=== PATIENT | female | born 1970 | race Caucasian/White ===

== ENCOUNTER 2023-03-16 13:46 | Emergency (ER) | payer MEDICAID, SELFPAY ==
[2023-03-16 13:59] VITALS: BP 132/80; PULSE 85; RESP 20; O2SAT 98
--- NOTE | 2023-03-16 22:17 | W.ED.GENAD ---
Discharge Plan Disposition Patient Disposition: Home Discharge Details Clinical Impression: Finger laceration Primary Care Provider: Yoana,Local ED Provider: Deirdre Patel Home Meds and New Rx's Prescriptions: Continued epinephrine [EpiPen 2-Chi] 0.3 MG/0.3 ML auto-injector 0.3 mg IM ONCE epinephrine 0.3 Mg/ 0.3 mg IM PRN Qty: 1 2RF Rx Instructions: 1 PEN IM once for accidental exposure of allergen eszopiclone 2 MG tablet 2 mg PO HS Qty: 90 Rx Instructions: Take 1 tab PO HS for middle insomnia loratadine 10 MG tablet 10 mg PO BID Patient Comments: 08-10-17 pt reports that she is not currently taking this med. hb clindamycin HCl 300 MG capsule 300 mg PO QID Qty: 40 0RF Rx Instructions: Please take a total of 450 mg 4 times daily for 10 days clindamycin HCl 150 MG capsule 150 mg PO QID Qty: 40 0RF Rx Instructions: Please take a total of 450 mg 4 times daily for 10 days Discharge Instructions Instructions: Finger Laceration (ED) Additional Instructions: keep clean and dry keep covered until healed, when working return earlier with spreading redness, fever worsening pain Discharge Data Discharge Date/Time-TO BE ENTERED AT DEPARTURE: 03/16/23 18:08 Medical Decision Making 50-year-old female presenting with laceration to left third digit Tetanus was updated in the emergency department, no indication for x-ray Wound was cleansed and glue was applied, coagulation achieved Return precautions reviewed and patient expressed understanding, will take the rest of the week off We did talk about suture placement, patient prefers glue and I think this is appropriate at this time She is neurovascularly intact, she has brisk distal capillary refill HPI General Date/Time Provider Initiated Documentation: 03/16/23 16:40. HPI Narrative: This 52-year-old female presents with laceration to left hand on her middle finger from hedge clippers about 15 minutes prior to arrival. She is unsure if her tetanus is up-to-date. 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 Related Data Home Medications Medication Instructions Recorded Confirmed loratadine 10 mg tablet 10 mg PO BID 02/12/14 03/08/17 epinephrine 0.3 mg/0.3 mL 0.3 mg IM ONCE 06/14/14 03/08/17 injection, auto-injector (EpiPen 2-Chi) eszopiclone 2 mg tablet 2 mg PO HS #90 tabs 02/25/17 clindamycin HCl 150 mg capsule 150 mg PO QID #40 caps 03/08/17 clindamycin HCl 300 mg capsule 300 mg PO QID #40 caps 03/08/17 Previous Rx's Medication Instructions Recorded clindamycin HCl 150 mg capsule 150 mg PO QID #40 caps 03/08/17 clindamycin HCl 300 mg capsule 300 mg PO QID #40 caps 03/08/17 Allergies Allergy/AdvReac Type Severity Reaction Status Date / Time shellfish derived Allergy Intermediate Swelling/Ed Unverified 08/10/17 15:01 luciano venom-honey bee Allergy Intermediate Swelling/Ed Unverified 08/10/17 15:01 luciano maitake mushroom Allergy Unverified 08/10/17 15:01 Sulfa (Sulfonamide AdvReac Intermediate Nausea Unverified 08/10/17 15:01 Antibiotics) General Stated Complaint: Laceration GREY: 4 PFSH All Active Problems (Updated 03/16/23 @ 17:27 by BALTAZAR Hale) Finger laceration (Acute) Medical History (Updated 03/16/23 @ 17:27 by BALTAZAR Hale) Acute peptic ulcer Uterine fibroids affecting Surgical History (Updated 05/11/18 @ 14:33 by [employer] [place]) Cholecystectomy Hysterectomy, Laproscopic Ligation of fallopian tube Oophrectomy, Left Family History Mother Heart disease Father Neoplasm Social History Smoking/Tobacco Use Status: Never Smoking risk assessment performed?: Yes Alcohol Intake: never Drug use: Never Substance use type: does not use Housing: apartment Do you feel safe at home: Yes Do you feel safe in your relationship?: Yes Course Vital Signs Vital signs: Vital Signs Pulse 85 03/16/23 13:59 Respiratory Rate 20 03/16/23 13:59 Blood Pressure 132/80 03/16/23 13:59 Pulse Oximetry 98 03/16/23 13:59 Pulse 85 03/16/23 13:59 Respiratory Rate 20 03/16/23 13:59 Respiratory Effort Normal, Non-Labored 03/16/23 14:01 Blood Pressure 132/80 03/16/23 13:59 Blood Pressure Position Sitting 03/16/23 13:59 Pulse Oximetry 98 03/16/23 13:59 Oxygen Delivery Method Room Air 03/16/23 13:59 Oxygen Flow Rate 0 03/16/23 13:59
== END 2023-03-16 18:08 | disposition home or self-care (01) ==
PROVIDERS: Emergency Provider Physician Assistant
DX: S61.213A Laceration without foreign body of left middle finger without damage to nail, initial encounter (principal); W26.8XXA Contact with other sharp object(s), not elsewhere classified, initial encounter
CPT/HCPCS: 90471; 99284; 99283

== ENCOUNTER → 2023-04-19 00:44 | Outpatient (CLI) | payer MEDICAID, SELFPAY ==
--- NOTE | 2023-04-19 08:30 | DI.US_ITS ---
Exam(s) US PELVIS TRANSVAGINAL EXAM: US PELVIS TRANSVAGINAL CLINICAL HISTORY: s/p hysterectomy,RLQ ABD PAIN,R10.31. TECHNIQUE: Transabdominal and transvaginal pelvic ultrasound was performed using standard protocol. COMPARISON: US PELVIS TRANSVAG from 03/15/2017 FINDINGS: UTERUS: Status post hysterectomy. OVARIES: The ovaries were not visualized transabdominally or transvaginally. No adnexal masses are s een sonographically. CUL-DE-SAC: Free fluid: None. Other: None. IMPRESSION: 1. Status post hysterectomy. 2. The ovaries were not visualized sonographically. No adnexal masses are seen. DATA REPOSITORY:
== END ==
PROVIDERS: Visit Provider Obstetrics & Gynecology Gynecology
DX: Z98.890 Other specified postprocedural states (principal); Z90.710 Acquired absence of both cervix and uterus; R10.31 Right lower quadrant pain
CPT/HCPCS: 76830; 76856

== ENCOUNTER 2024-01-01 18:27 | Emergency (ER) | payer MEDICAID, SELFPAY ==
[2024-01-01 18:30] VITALS: BP 159/67; PULSE 80; RESP 15; TEMP 36.2; O2SAT 96
--- NOTE | 2024-01-01 18:30 | DI.RAD_ITS ---
Exam(s) XR WRIST LT COMPLETE EXAM: XR WRIST LT COMPLETE CLINICAL HISTORY: pain s/p fall. TECHNIQUE: 2D digital imaging was performed. COMPARISON: No exams were available for comparison FINDINGS: 3 views Evidence of fracture or dislocation nor significant ulnar variance. Scaphoid and scapholunate distan ce normal. Mild degenerative changes are noted in the 1st carpometacarpal joint. IMPRESSION: No acute osseous findings. DATA REPOSITORY: RADIATION DOSE DELIVERED:
--- NOTE | 2024-01-01 18:30 | DI.RAD_ITS ---
Exam(s) XR FOREARM LT EXAM: XR FOREARM LT CLINICAL HISTORY: pain s/p fall. TECHNIQUE: 2D digital imaging was performed. COMPARISON: No exams were available for comparison FINDINGS: Two views-AP and lateral No evidence of fracture of the radial head and neck. Remainder of the forearm bones unremarkable. N o radiopaque foreign body. Incidentally noted is cortical irregularity at the level the medial epicondyle the distal humerus. M ay be related to epicondylitis. Also small bony excrescence seen off the lateral epicondyle fossa in dicating chronic lateral epicondylitis for. IMPRESSION: No significant osseous findings in the radius and ulna. Bilateral distal humerus epicondyle findings as described above. Probably related to epicondylitis. Correlation with site of tenderness recommended DATA REPOSITORY: RADIATION DOSE DELIVERED:
--- NOTE | 2024-01-01 18:30 | DI.RAD_ITS ---
Exam(s) XR HAND LT COMPLETE EXAM: XR HAND LT COMPLETE CLINICAL HISTORY: pain /sp fall. TECHNIQUE: 2D digital imaging was performed. COMPARISON: No exams were available for comparison FINDINGS: 3 views No evidence of acute fracture or dislocation or significant abnormal soft tissue densities. No radio paque foreign body. No osseous lesions nor erosions. IMPRESSION: No acute osseous findings in the hand. DATA REPOSITORY: RADIATION DOSE DELIVERED:
--- NOTE | 2024-01-01 18:43 | W.ED.GENAD ---
Discharge Plan Disposition Patient Disposition: Home Condition: Stable Discharge Details Clinical Impression: Contusion of arm, left, Left wrist sprain Primary Care Provider: None,None ED Provider: Alejandro Anton Home Meds and New Rx's Prescriptions: Continued epinephrine [EpiPen 2-Chi] 0.3 MG/0.3 ML auto-injector 0.3 mg IM ONCE epinephrine 0.3 Mg/ 0.3 mg IM PRN Qty: 1 2RF Rx Instructions: 1 PEN IM once for accidental exposure of allergen Discharge Instructions Additional Instructions: Call orthopedics on Wednesday to arrange for follow-up appointment You can take 1000 mg of Tylenol and 600 mg of ibuprofen every 6 hours as needed If you feel more ill or have severe worsening pain return to the emergency department for reevaluation Referrals: Grzegorz Chopra MD [ [facility] STAFF PHYSICIAN] - [facility] General Mode of arrival: ambulatory. Date/Time Provider Initiated Documentation: 01/01/24 18:35. Limitations to Documentation: no limitations. Information obtained by: patient. History of Present Illness 53 year old F presents to the emergency department with the chief complaint of left arm pain, described as moderate, with intensity rated at 7. Quality is described as aching, and is localized to the left and upper extremity. Patient reports no radiation. and it has been constant. No relieving factors improve symptom(s), No exacerbating factors reported . Patient notes no other symptoms.. Patient did receive the following treatments prior to arrival, none Related Data Home Medications Medication Instructions Recorded Confirmed epinephrine 0.3 mg/0.3 mL 0.3 mg IM ONCE 06/14/14 07/12/23 injection, auto-injector (EpiPen 2-Chi) Allergies Allergy/AdvReac Type Severity Reaction Status Date / Time shellfish derived Allergy Intermediate Swelling/Ed Unverified 06/22/23 13:52 luciano venom-honey bee Allergy Intermediate Swelling/Ed Unverified 06/22/23 13:52 luciano maitake mushroom Allergy Unverified 06/22/23 13:52 Sulfa (Sulfonamide AdvReac Intermediate Nausea Unverified 06/22/23 13:52 Antibiotics) General Stated Complaint: Orthopedic GREY: 4 Review of Systems All systems reviewed & are unremarkable except as noted in HPI and below Constitutional Constitutional: Denies chills, Denies fever(s) and Denies weakness Cardiovascular Cardiovascular: Denies chest pain and Denies dyspnea Respiratory Respiratory: Denies cough and Denies dyspnea Gastrointestinal Gastrointestinal: Denies abdominal pain, Denies nausea and Denies vomiting Musculoskeletal Musculoskeletal: Denies joint swelling Neurologic Neurologic: Denies weakness Psychiatric Psychiatric: Denies depression Exam Const General: no acute distress Orientation: alert HENWV Head: normal to inspection Ears: external ears normal General nose exam: external nose normal Mouth: moist mucous membranes Eyes General: appearance normal, both eyes and all related structures Neck Neck: normal visual inspection Resp Effort & Inspection: normal respiratory effort and able to speak in complete sentences Cardio Rate: regular rate Skin General skin exam: no rashes or lesions noted Neuro General: patient alert and patient oriented x3 Extrem General: full ROM and capillary refill normal Psych Mental Status: mental status grossly normal Course Vital Signs Vital signs: Vital Signs Temperature 36.2 C L 01/01/24 18:30 Pulse 80 01/01/24 18:30 Respiratory Rate 15 01/01/24 18:30 Blood Pressure 159/67 H 01/01/24 18:30 Pulse Oximetry 96 01/01/24 18:30 Temperature 36.2 C L 01/01/24 18:30 Temperature Source Tympanic 01/01/24 18:30 Pulse 80 01/01/24 18:30 Respiratory Rate 15 01/01/24 18:30 Respiratory Effort Normal 01/01/24 18:33 Blood Pressure 159/67 H 01/01/24 18:30 Blood Pressure Position Sitting 01/01/24 18:30 Pulse Oximetry 96 01/01/24 18:30 Oxygen Delivery Method Room Air 01/01/24 18:30 Oxygen Flow Rate 0 01/01/24 18:30 Pain Level 7 01/01/24 18:30 Medical Decision Making 53-year-old female comes in with left arm pain. 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 Did not hit her head or lost consciousness. She has pain in her left mid forearm, left medial wrist and left medial hand. No visible or palpable deformities on exam. Has intact sensation and pulses. Has full range of motion of her wrist and fingers but has tenderness over the fifth mid metacarpal and also the medial surface of the wrist. Has tenderness in the mid forearm, no tenderness over the elbow, humerus or shoulder. Suspect contusions but will obtain x-rays to evaluate for fracture X-rays negative other than question of a nondisplaced medial epicondyle fracture. Patient has full range of motion of her elbow, has minimal tenderness in this area. Unclear if this is actually a true fracture but will place in a sling and also given a wrist splint for her wrist sprain. Will have her follow-up with orthopedics Differential Diagnosis Differential Diagnosis: Contusion, fracture Imaging Data Radiologic Study: Attestation: I personally reviewed and interpreted this imaging study as follows: Imaging: X-Ray Radiologist's impression: PROCEDURE INFORMATION: Exam: XR Left Forearm Exam date and time: 01/01/2024 7:04 PM Age: 53 years old Clinical indication: Injury or trauma; Blunt trauma (contusions or hematomas); Arm, lower and wrist and hand; Left; Injury date: 01/01/24; Patient HX: Pain /sp fall TECHNIQUE: Imaging protocol: Radiologic exam of the left forearm. Views: 2 views. COMPARISON: CR XR WRIST LT COMPLETE 01/01/2024 7:00 PM FINDINGS: Bones/joints: There is a nondisplaced avulsion fracture of the medial epicondyle suspected. Mild enthesopathic spurring at the lateral epicondyle. Soft tissues: Normal. IMPRESSION: Nondisplaced avulsion fracture of the medial epicondyle suspected. Radiologic Study #2: Attestation: I personally reviewed and interpreted this imaging study as follows: Imaging: X-Ray Radiologist's impression: no acute findings on wrist xray Radiologic Study #3: Attestation: I personally reviewed and interpreted this imaging study as follows: Imaging: X-Ray Radiologist's impression: no acute findings hand xray Quality:SDOH Health Related Social Needs: No Data to Display PFSH All Active Problems (Updated 01/01/24 @ 20:05 by Alejandro Anton MD) Left wrist sprain (Acute) Contusion of arm, left (Acute) Grief reaction with prolonged bereavement (Acute) 2017. spouse killed grooming [employer]. Vasomotor symptoms due to menopause (Acute) Insomnia associated with menopause (Acute) Medical History (Updated 01/01/24 @ 20:05 by Alejandro Anton MD) RLQ abdominal pain Acute peptic ulcer Uterine fibroids affecting Surgical History (Updated 05/11/18 @ 14:33 by [employer] [place]) Ligation of fallopian tube Oophrectomy, Left Hysterectomy, Laproscopic Cholecystectomy Family History Mother Heart disease Father Neoplasm Social History (Updated 04/24/23 @ 07:10 by Renay Barth MD) Smoking/Tobacco Use Status: Never Smoking risk assessment performed?: Yes Alcohol Intake: never Drug use: Never Substance use type: does not use Household members: other Details: lives alone. Housing: apartment Number of Children: 2 current occupation: [employer] Sexually active: No Do you feel safe at home: Yes Do you feel safe in your relationship?: Yes Additional Social history: Daughters: Rin Mann History History 4 Para 2 Hx # Term Pregnancies 2 Multiple births Hx # Pregnancies Ectopic pregnancies 1 AB induced Hx Number of Living Children 2 AB spontaneous 1
[2024-01-01] MEDS: Ibuprofen 600 MG TAB PO (18:56)
--- NOTE | 2024-01-01 19:53 | DI.VRAD_ITS ---
PROCEDURE INFORMATION: Exam: XR Left Forearm Exam date and time: 01/01/2024 7:04 PM Age: 53 years old Clinical indication: Injury or trauma; Blunt trauma (contusions or hematomas); Arm, lower and wrist and hand; Left; Injury date: 01/01/24; Patient HX: Pain /sp fall TECHNIQUE: Imaging protocol: Radiologic exam of the left forearm. Views: 2 views. COMPARISON: CR XR WRIST LT COMPLETE 01/01/2024 7:00 PM FINDINGS: Bones/joints: There is a nondisplaced avulsion fracture of the medial epicondyle suspected. Mild enthesopathic spurring at the lateral epicondyle. Soft tissues: Normal. IMPRESSION: Nondisplaced avulsion fracture of the medial epicondyle suspected. Dictated and Authenticated by: Tashi Salas MD. Ordering:JORGE Allen MD
--- NOTE | 2024-01-01 19:56 | DI.VRAD_ITS ---
PROCEDURE INFORMATION: Exam: XR Left Wrist Exam date and time: 01/01/2024 7:00 PM Age: 53 years old Clinical indication: Injury or trauma; Blunt trauma (contusions or hematomas); Arm, lower and wrist and hand; Left; Injury date: 01/01/2024; Patient HX: Pain S/P fall TECHNIQUE: Imaging protocol: Radiologic exam of the left wrist. Views: 3 or more views. COMPARISON: CR XR HAND LT COMPLETE 01/01/2024 6:58 PM FINDINGS: Bones/joints: Normal. Soft tissues: Normal. IMPRESSION: No acute findings. Dictated and Authenticated by: Tashi Salas MD. Ordering:JORGE Allen MD
--- NOTE | 2024-01-01 19:57 | DI.VRAD_ITS ---
PROCEDURE INFORMATION: Exam: XR Left Hand Exam date and time: 01/01/2024 6:58 PM Age: 53 years old Clinical indication: Injury or trauma; Blunt trauma (contusions or hematomas); Arm, lower and wrist and hand; Left; Injury date: 01/01/2024; Patient HX: Pain S/P fall TECHNIQUE: Imaging protocol: Radiologic exam of the left hand. Views: 3 or more views. COMPARISON: No relevant prior studies available. FINDINGS: Bones/joints: Normal. Soft tissues: Normal. IMPRESSION: No acute findings. Dictated and Authenticated by: Tashi Salas MD. Ordering:JORGE Allen MD
[2024-01-01 20:26] VITALS: BP 159/67; PULSE 80; RESP 15; TEMP 36.2; O2SAT 96
--- NOTE | 2024-01-02 14:08 | NUR.NOTE ---
Accessed patient chart to print provider note to be faxed to [facility] for billing purposes. Nursing Note:
== END 2024-01-01 20:26 | disposition home or self-care (01) ==
PROVIDERS: Emergency Provider Emergency Medicine
DX: S50.12XA Contusion of left forearm, initial encounter (principal); S63.502A Unspecified sprain of left wrist, initial encounter; W01.0XXA Fall on same level from slipping, tripping and stumbling without subsequent striking against object, initial encounter; Y93.H2 Activity, gardening and landscaping; Y92.017 Garden or yard in single-family (private) house as the place of occurrence of the external cause; Y99.0 Civilian activity done for income or pay
CPT/HCPCS: 99283; 73090; 73110; 73130

== ENCOUNTER 2024-02-01 15:05 | Outpatient (CLI) | payer MEDICAID, SELFPAY ==
--- NOTE | 2024-02-01 09:30 | DI.RAD_ITS ---
Exam(s) XR WRIST LT COMP NAVICULAR EXAM: XR WRIST LT COMP NAVICULAR CLINICAL HISTORY: continued wrist pain 1 month after fall. TECHNIQUE: 2D digital imaging was performed. Three views. COMPARISON: CR,XR XR WRIST LT COMPLETE from 01/01/2024 FINDINGS: BONES: No acute fracture is present. No bony destructive lesion is seen. JOINTS: The carpal bones are normally aligned. Mild spurring at the 1st carpal metacarpal joint and scaphoid trapezium joint. SOFT TISSUE: Normal. IMPRESSION: Mild degenerative changes. DATA REPOSITORY: RADIATION DOSE DELIVERED:
--- NOTE | 2024-02-01 09:30 | DI.RAD_ITS ---
Exam(s) XR ELBOW LT LIMITED EXAM: XR ELBOW LT LIMITED CLINICAL HISTORY: fracture follow up. TECHNIQUE: 2D digital imaging was performed. Three views. COMPARISON: CR LEFT ELBOW COMPLETE from 08/09/2012 CR,XR XR FOREARM LT from 01/01/2024 FINDINGS: BONES: No acute fracture is present. No bony destructive lesion is seen. Mild spurring lateral epicon dyle. Smoothly marginated bony fragment adjacent to the medial epicondyle is likely related to calci fication in tendon or ligament. JOINTS: The elbow is normally aligned. No joint effusion is seen. SOFT TISSUE: Normal. IMPRESSION: No evidence of fracture. Stable findings at both epicondyles which could be related to epicondylitis . DATA REPOSITORY: RADIATION DOSE DELIVERED:
== END 2024-02-01 15:06 | disposition home or self-care (01) ==
LOC: DIORS 15:05
PROVIDERS: Visit Provider Physician Assistant
DX: S69.92XA Unspecified injury of left wrist, hand and finger(s), initial encounter (principal); S42.442A Displaced fracture (avulsion) of medial epicondyle of left humerus, initial encounter for closed fracture; M19.032 Primary osteoarthritis, left wrist
CPT/HCPCS: 73070; 73110

== ENCOUNTER 2025-05-07 01:48 | Emergency (ER) | payer MEDICAID, SELFPAY ==
[2025-05-07 01:51] VITALS: BP 121/84; PULSE 81; RESP 16; TEMP 36.4; O2SAT 97
[2025-05-07 02:03] VITALS: BP 121/84; PULSE 81; RESP 16; TEMP 36.4; O2SAT 97
--- NOTE | 2025-05-07 02:10 | W.ED.GENAD ---
Discharge Plan Disposition Patient Disposition: Home Condition: Good Discharge Details Clinical Impression: Radicular low back pain, Panniculitis Primary Care Provider: None,None ED Provider: Tre Day Home Meds and New Rx's Prescriptions: New prednisone 50 mg tablet 50 mg PO DAILY Qty: 5 0RF lidocaine [Lidoderm] 5 % adhesive patch,medicated 1 patch Topical Q24H Qty: 15 0RF methocarbamol 1,000 mg tablet 1,500 mg PO TID Qty: 30 0RF No Action epinephrine [EpiPen 2-Chi] 0.3 MG/0.3 ML auto-injector 0.3 mg IM ONCE epinephrine 0.3 Mg/ 0.3 mg IM PRN Qty: 1 2RF Rx Instructions: 1 PEN IM once for accidental exposure of allergen acetaminophen 325 mg capsule 650 mg PO Q6H PRN Discharge Instructions Instructions: Radiculopathy (DC) Additional Instructions: At this time your signs and symptoms are clinically consistent with a back sprain. This can cause significant pain and take a fair bit of time to heal. I expect 1 to 2 months for potential resolution. In the meantime do not lift anything greater than 5 pounds for the next 2 weeks. Avoid any significant vigorous physical activity. Perform easy gentle regular activities at home without any significant bending or lifting. Please take the steroids as directed. You have been given a prescription for Lidoderm patch. If your insurance does not cover this you can get [id number] Lidoderm patches at 4% which are almost just as effective. Please take the methocarbamol as directed but do not take it when driving or operating any vehicles or heavy machinery, swimming, taking long baths, or operating firearms. Please use a heating pad as often as possible on your back. Perform daily gentle stretches on your back. Please continue to take the Tylenol and Motrin. You can take 1000 mg of Tylenol every 6 hours and 600 mg of ibuprofen every 6 hours. If you notice any worsening of your symptoms, or any new symptoms such as vomiting, diarrhea, fever, chills, shortness of breath, chest pain, numbness or tingling in your groin or legs, weakness in your legs, loss of control for your bowels or bladder, or fainting , please return immediately to the emergency department for reevaluation. Please follow up with your primary care provider as soon as possible for reassessment and reevaluation. As always, it was a pleasure participating in your medical care today. HPI General Date/Time Provider Initiated Documentation: 05/07/25 01:50. HPI Narrative: This is a 54-year-old female with past medical history of mild obesity, but no other significant medical problems who presents today for evaluation of right flank pain. The patient states that about 4 to 5 days ago she was doing a lot of outside yard work and landscaping, she developed some mild right sided flank achiness and back pain at that time. Its persisted over the last 4 days, it is worsened with activity and movement, but it is also present at rest. She has been taking NSAID therapy which initially was improving her symptoms but now has no longer been helpful or beneficial. She denies fever, but does admit to occasional hot flashes. She admits to urinary frequency but denies any burning/dysuria or hematuria. She denies personal history of kidney stones. No other complaints at this time. No other modifying factors. No vomiting or diarrhea. No constipation. Patient denies any saddle anesthesia, numbness or tingling in the groin, change in sensation when wiping. Patient denies any change in sensation during sexual intercourse, bowel or bladder incontinence, leakage, or retention. Patient denies any weakness in the lower extremities, atypical falls or imbalance. She does admit to a slight burning sensation down her right leg occasionally. Related Data Home Medications ?Medication ?Instructions ?Recorded ?Confirmed epinephrine 0.3 mg/0.3 mL 0.3 mg IM ONCE 06/14/14 05/07/25 injection, auto-injector (EpiPen 2-Chi) acetaminophen 325 mg capsule 650 mg PO Q6H PRN 05/07/25 05/07/25 lidocaine 5 % topical patch 1 patch topical Q24H #15 ea 05/07/25 (Lidoderm) methocarbamol 1,000 mg tablet 1,500 mg (1.5 x 1,000 mg) PO TID 05/07/25 #30 tabs prednisone 50 mg tablet 50 mg PO DAILY #5 tabs 05/07/25 Previous Rx's ?Medication ?Instructions ?Recorded lidocaine 5 % topical patch 1 patch topical Q24H #15 ea 05/07/25 (Lidoderm) methocarbamol 1,000 mg tablet 1,500 mg (1.5 x 1,000 mg) PO TID 05/07/25 #30 tabs prednisone 50 mg tablet 50 mg PO DAILY #5 tabs 05/07/25 Allergies Allergy/AdvReac Type Severity Reaction Status Date / Time shellfish derived Allergy Intermediate Swelling/Ed Unverified 02/01/24 09:15 luciano venom-honey bee Allergy Intermediate Swelling/Ed Unverified 02/01/24 09:15 luciano maitake mushroom Allergy Other (See Unverified 02/01/24 09:15 Comment) Sulfa (Sulfonamide AdvReac Intermediate Nausea Unverified 02/01/24 09:15 Antibiotics) General Stated Complaint: Abd Prob GREY: 3 Exam Narrative Exam Narrative: 1.Const: Well-nourished, Well-developed, appearing stated age 2.Eyes: PERRL, no conjunctival injection, and symmetrical lids. 3.ENT: Atraumatic external nose and ears. Moist MM. Neck: Symmetric, trachea midline, No thyromegaly. 4.CVS: +S1/S2, Peripheral pulses 2+ and equal in all extremities. Brisk capillary refill in all extremities. 5.RESP: Unlabored respiratory effort. Clear to auscultation bilaterally. No wheezes rales or rhonchi 6.GI: Soft, nondistended. No guarding or rebound. Mild tenderness on deep palpation of the right and left lower abdominal quadrants. Mild right CVA tenderness. 7.MSK: Normocephalic/Atraumatic, Extremities w/o deformity or ttp No cyanosis or clubbing, Normal movement of all extremities No midline tenderness to palpation over the CTS spine. Mild tenderness around L4 midline. Mild to moderate right paraspinal tenderness at the lumbar vertebra. Normal ROM in flexion, extension, side bend, and rotation. Patient has +5 out of 5 strength in the lower extremities in dorsiflexion and plantarflexion, knee flexion and extension, hip flexion and extension. Normal strength for dorsiflexion and plantar flexion of the great toe bilaterally. There is +2 over 2 dorsalis pedis pulses bilaterally. There is normal sensation to the skin with light touch at the foot, knee, and hip. Normal saddle sensation. Good sensation over the deep sural nerve area bilaterally. +5 out of 5 strength in the medial, ulnar, radial nerve distribution bilaterally in the hands as well as intact light touch sensation to these dermatomes on the hands 8.Skin: Warm, Dry. No rashes or lesions. 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 Sensation grossly intact, no focal neurologic deficits. 10.Psych: (AAO) x3. Appropriate mood and affect Course Vital Signs Vital signs: Vital Signs Temperature 36.4 C 05/07/25 01:51 Pulse 81 05/07/25 01:51 Respiratory Rate 16 05/07/25 01:51 Blood Pressure 121/84 05/07/25 01:51 Pulse Oximetry 97 05/07/25 01:51 Temperature 36.4 C 05/07/25 02:03 Temperature Source Temporal Artery Scan 05/07/25 02:03 Pulse 81 05/07/25 02:03 Respiratory Rate 16 05/07/25 02:03 Blood Pressure 121/84 05/07/25 02:03 Blood Pressure Position Sitting 05/07/25 02:03 Pulse Oximetry 97 05/07/25 02:03 Oxygen Delivery Method Room Air 05/07/25 02:03 Oxygen Flow Rate 0 05/07/25 02:03 Pain Level 10 05/07/25 02:03 Medical Decision Making This is a 54-year-old female with past medical history of mild obesity, but no other significant medical problems who presents today for evaluation of right flank pain. The patient states that about 4 to 5 days ago she was doing a lot of outside yard work and landscaping, she developed some mild right sided flank achiness and back pain at that time. Its persisted over the last 4 days, it is worsened with activity and movement, but it is also present at rest. She has been taking NSAID therapy which initially was improving her symptoms but now has no longer been helpful or beneficial. She denies fever, but does admit to occasional hot flashes. She admits to urinary frequency but denies any burning/dysuria or hematuria. She denies personal history of kidney stones. No other complaints at this time. No other modifying factors. No vomiting or diarrhea. No constipation. Patient denies any saddle anesthesia, numbness or tingling in the groin, change in sensation when wiping. Patient denies any change in sensation during sexual intercourse, bowel or bladder incontinence, leakage, or retention. Patient denies any weakness in the lower extremities, atypical falls or imbalance. She does admit to a slight burning sensation down her right leg occasionally. Exam demonstrates well-appearing female, mild abdominal tenderness in the lower abdominal quadrants bilaterally, mild to moderate right CVA tenderness as well as midline tenderness at around L4. No other trauma, no other concerning red flags. No saddle anesthesia or numbness to suggest cauda equina syndrome. Symptoms are concerning for mild radiculopathy, UTI Carlo or urolithiasis. Will give Toradol, get CT imaging, apply Lidoderm patch, monitor closely and reassess. 4 AM On reassessment patient is feeling much better. Back pain significantly improved. Patient continues to show no signs of cauda equina syndrome. 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 Symptomatology clinically consistent with radiculopathy. No evidence of an acute surgical abdomen appendicitis or other abnormality. No evidence of spinal epidural abscess, or cord compression etiologies. Patient will be discharged, will give steroids, Lidoderm patches, prescription for outpatient prednisone, and Robaxin. Patient stable for discharge. Discussed red flags for which to return. I have extensively reviewed the treatment plan and discharge instructions with the patient. I have addressed all patient concerns at this time. The patient was made aware of what symptoms to monitor for that would warrant a return to the emergency department. Discussed the plan with the patient, they demonstrate verbal understanding and agreement with our assessment and plan at this time. The documentation in this chart was dictated using [employer] dictation software. Please excuse any dictation errors. FINDINGS: Liver: Normal. No mass. Gallbladder and biliary ducts: Prior cholecystectomy. No biliary ductal dilatation. Pancreas: Unremarkable. Spleen: Normal. Adrenal glands: Normal. No mass. Kidneys and ureters: Small right renal cyst. No obstructive uropathy. Stomach and bowel: No pneumatosis or portal/mesenteric venous gas. Appendix: Normal appendix. Intraperitoneal space: No pneumoperitoneum or abscess. Vasculature: See Stomach and bowel finding. Lymph nodes: Mildly increased attenuation of the mesentery near its root with pseudocapsule and small associated mesenteric lymph nodes, consistent with mesenteric panniculitis. Urinary bladder: Unremarkable as visualized. Reproductive: Hysterectomy. Bones/joints: Unremarkable. No acute fracture. Soft tissues: Unremarkable. IMPRESSION: Mesenteric panniculitis. Thank you for allowing us to participate in the care of your patient. Dictated and Authenticated by: Dayo Euceda MD 05/07/2025 3:30 AM Eastern Time ([place] & [place]) FINDINGS: Bones/joints: L5-S1 degenerative disc disease and central L5-S1 disc herniation. Impingement of the transiting bilateral S1 nerve roots is not excluded. No fracture or suspicious osseous lesion. Soft tissues: See Bones/joints finding. IMPRESSION: L5-S1 degenerative disc disease and central L5-S1 disc herniation. Impingement of the transiting bilateral S1 nerve roots is not excluded. Thank you for allowing us to participate in the care of your patient. Dictated and Authenticated by: Dayo Euceda MD 05/07/2025 3:36 AM Eastern Time ([place] & [place]) PFSH All Active Problems (Updated 05/07/25 @ 03:53 by Tre Day DO) Panniculitis (Acute) Radicular low back pain (Acute) Arthritis of carpometacarpal (CMC) joint of left thumb (Acute) Left wrist sprain (Acute 12/30/23) Fracture of medial epicondyle of left humerus (Acute 12/30/23) Grief reaction with prolonged bereavement (Acute) 2016. spouse killed grooming [address] Vasomotor symptoms due to menopause (Acute) Insomnia associated with menopause (Acute) Medical History (Updated 05/07/25 @ 03:53 by Tre Day DO) RLQ abdominal pain Acute peptic ulcer Uterine fibroids affecting Surgical History (Updated 05/11/18 @ 14:33 by [employer]) Ligation of fallopian tube Oophrectomy, Left Hysterectomy, Laproscopic Cholecystectomy Family History Mother Heart disease Father Neoplasm Social History (Updated 04/24/23 @ 07:10 by Renay Barth MD) Smoking/Tobacco Use Status: Never Smoking risk assessment performed?: Yes Alcohol Intake: never Drug use: Never Substance use type: does not use Household members: other Details: lives alone. Housing: apartment Number of Children: 2 current occupation: [email or web address] Sexually active: No Do you feel safe at home: Yes Do you feel safe in your relationship?: Yes Additional Social history: Daughters: Rin Mann History History 4 Para 2 Hx # Term Pregnancies 2 Multiple births Hx # Pregnancies Ectopic pregnancies 1 AB induced Hx Number of Living Children 2 AB spontaneous 1
--- NOTE | 2025-05-07 02:19 | DI.CT_ITS ---
Exam(s) CT LUMBAR SPINE RECONS CT ABDOMEN PELVIS WO EXAM: CT ABDOMEN PELVIS WO CLINICAL HISTORY: right flank back pain, eval for stone/disc patho. TECHNIQUE: Imaging Protocol: Axial computed tomography images with coronal and sagittal reformatted images were created and reviewed. COMPARISON: CT ABD PELVIS WITH CONTRAST from 10/15/[address] LUMBAR SPINE RECONS from 05/07/2025 FINDINGS: Lung Bases: No acute findings. Liver: Mild hepatic steatosis. No measurable mass. Gallbladder and biliary tract: Cholecystectomy. No biliary ductal dilation. Pancreas: No abnormal calcifications or inflammatory process. Spleen: Normal size. Kidneys: Normal size, contour and axis.No radiodense stones or obstructive uropathy. Small right renal cyst. No suspicious masses seen. Adrenal glands: No mass is seen. Lymph nodes: Small mesenteric lymph nodes. Vasculature: Abdominal aorta non-dilated. Bladder:No stones. No gross wall thickening. No evidence of mass. Bowel: No obstruction. No bowel wall thickening. The appendix is normal. Normal quantity of stool. Peritoneal cavity: Minimally increased density within the central mesentery which could indicate mesenteric panniculitis. No ascites.No free air. No focal collection. Reproductive organs: Hysterectomy Soft Tissues: Within normal limits. Lumbar spine: Moderate loss of disc height at L5-S1 with endplate osteophytes and vacuum phenomenon. Mild bilateral neural foraminal narrowing. No central canal stenosis. The remaining discs are maintained. IMPRESSION: Question mild mesenteric panniculitis. Degenerative disc changes at L5-S1. The preliminary [facility] report was reviewed. RADIATION DOSE DELIVERED: 665.35mGy.cm Total DLP 665.35mGy.cm Total DLP DATA REPOSITORY: All CT scans at this facility are submitted to the National Radiology Data Registry (NRDR) Dose Index Registry (DIR) with the [employer] (ACR). RADIATION OPTIMIZATION: All CT scans at this facility use at least one of these dose optimization techniques: automated exposure control; mA and/or kV adjustment per patient size (includes targeted exams where dose is matched to clinical indication); or iterative reconstruction.
[2025-05-07] MEDS: Ketorolac 15 MG/ML VIAL IVP (02:27)
[2025-05-07] MEDS: Lidocaine 5% Patch 1 PATCH TP (02:27)
[2025-05-07 02:31] LABS: Abs Immature Grans 0.03 10^3/uL (0.0-0.06); HCT 39.5 % (36.0-46.0); HGB 13.0 g/dL (11.2-15.7); Immature Grans % 0.3 %; MCH 29.5 pg (27.0-33.0); MCHC 32.9 % (32.0-36.0); MCV 90 fL (80-95); MPV 10.3 fL (8.0-11.0); Platelet Count 206 10^3/uL (130-400); RBC 4.40 10^6/uL (3.93-5.22); RDW 13.0 % (11.7-14.6); RDW-SD 42.6 fL; WBC 9.32 10^3/uL (4.4-10.8)
[2025-05-07 02:41] LABS: ALT 24 U/L (14-59); AST 14 U/L (15-37); Albumin 3.8 g/dL (3.4-5.0); Alkaline Phosphatase 97 U/L (46-116); Anion Gap 9.6 mmol/L (3-11); BUN 13 mg/dL (7-18); Bilirubin, Total 0.3 mg/dL (0.2-1.0); CO2 28.4 mmol/L (21.0-32.0); Calcium 8.9 mg/dL (8.5-10.1); Chloride 103 mmol/L (98-107); Estimated GFR 87.50 (mL/min/1.73m2); Glucose 113 mg/dL (74-106); Potassium 3.6 mmol/L (3.5-5.1); Sodium 141 mmol/L (136-145); Total Protein 8.1 g/dL (6.4-8.2)
[2025-05-07 02:43] LABS: Glucose Negative (Negative)
[2025-05-07 02:51] LABS: C & S Indicated? No; WBC Negative HPF (0-5)
--- NOTE | 2025-05-07 03:31 | DI.[facility]_ITS ---
PROCEDURE INFORMATION: Exam: CT Abdomen And Pelvis Without Contrast Exam date and time: 05/07/2025 3:01 AM Age: 54 years old Clinical indication: Other: R flank; Prior surgery; Surgery date: 6+ months; Surgery type: Hysterectomy, cholecystectomy; Right flank \T\ back pain, eval for stone/disc patho TECHNIQUE: Imaging protocol: Computed tomography of the abdomen and pelvis without contrast. Radiation optimization: All CT scans at this facility use at least one of these dose optimization techniques: automated exposure control; mA and/or kV adjustment per patient size (includes targeted exams where dose is matched to clinical indication); or iterative reconstruction. COMPARISON: US PELVIS TRANSVAGINAL 04/19/2023 1:43 PM FINDINGS: Liver: Normal. No mass. Gallbladder and biliary ducts: Prior cholecystectomy. No biliary ductal dilatation. Pancreas: Unremarkable. Spleen: Normal. Adrenal glands: Normal. No mass. Kidneys and ureters: Small right renal cyst. No obstructive uropathy. Stomach and bowel: No pneumatosis or portal/mesenteric venous gas. Appendix: Normal appendix. Intraperitoneal space: No pneumoperitoneum or abscess. Vasculature: See Stomach and bowel finding. Lymph nodes: Mildly increased attenuation of the mesentery near its root with pseudocapsule and small associated mesenteric lymph nodes, consistent with mesenteric panniculitis. Urinary bladder: Unremarkable as visualized. Reproductive: Hysterectomy. Bones/joints: Unremarkable. No acute fracture. Soft tissues: Unremarkable. IMPRESSION: Mesenteric panniculitis. Dictated and Authenticated by: Dayo Euceda MD. Orderin Barb oTledo MD
--- NOTE | 2025-05-07 03:37 | DI.[facility]_ITS ---
PROCEDURE INFORMATION: Exam: CT Lumbar Spine Without Contrast Exam date and time: 05/07/2025 3:01 AM Age: 54 years old Clinical indication: Low back pain; L4 midline pain TECHNIQUE: Imaging protocol: Computed tomography of the lumbar spine without contrast. Radiation optimization: All CT scans at this facility use at least one of these dose optimization techniques: automated exposure control; mA and/or kV adjustment per patient size (includes targeted exams where dose is matched to clinical indication); or iterative reconstruction. COMPARISON: CT ABDOMEN PELVIS WO 05/07/2025 3:01 AM FINDINGS: Bones/joints: L5-S1 degenerative disc disease and central L5-S1 disc herniation. Impingement of the transiting bilateral S1 nerve roots is not excluded. No fracture or suspicious osseous lesion. Soft tissues: See Bones/joints finding. IMPRESSION: L5-S1 degenerative disc disease and central L5-S1 disc herniation. Impingement of the transiting bilateral S1 nerve roots is not excluded. Dictated and Authenticated by: Dayo Euceda MD. Orderin Barb Toledo MD
[2025-05-07] MEDS: methylPREDNISolone SUCC 125 MG VIAL IM (04:04)
[2025-05-07 04:08] VITALS: BP 149/74; PULSE 68; RESP 16; O2SAT 99
--- NOTE | 2025-05-09 17:54 | NUR.NOTE ---
patient called to get a work note Nursing Note:
== END 2025-05-07 04:25 | disposition home or self-care (01) ==
PROVIDERS: Emergency Provider Student in an Organized Health Care Education/Training Program
DX: M54.50 Low back pain, unspecified; R10.31 Right lower quadrant pain; R10.32 Left lower quadrant pain
CPT/HCPCS: 99284 ×2; 96374; 96375; 36415; 80053; 74176; 81003; 81015; 85025; J1885; J2919